=== PATIENT | female | born 1950 | race Caucasian/White ===

== ENCOUNTER → 2016-03-29 | Day surgery (SDC) | payer OTHER ==
[~2016-03-29] MED LIST: ACETAMINOPHEN 1000 MG/100 ML VIAL IV ONE; ACETAMINOPHEN/HYDROcodone 325 MG/5 MG TAB ONE; ALPR-138; AMBI12.5; BALANCED SALT SOLN OPHT IRRIG 15 ML BTL ONE; DARV; LACTATED RINGER'S 1000 ML INJ 1,000 ML ONE; LIDOCAINE 1%/EPINEPHrine 1:100,000 SOLN 20 ML VIAL ONE; LIDOCAINE 2%/EPINEPHrine PF 1:200,000 20ML SDV ONE; METHTAB; MIDAZOLAM HCL 2 MG/2 ML VIAL ONE; NEOMYCIN/POLYMYXIN/BACITRACIN OINT 15 GM TUBE ONE; NEOMYCIN/POLYMYXIN/HYDROCORT OTIC SUSP 10 ML BTL ONE; ONDANSETRON HCL 4 MG/2 ML VIAL IV PUSH ONE; PREM0.622; PREV30CA36; PROG1CAP20; PROPOFOL 200 MG/20 ML AMP IV ONE; RESTASIS; SALAGEN; TRIA3AER; ZOVI400T15; [UNRECOGNIZED DRUG - CODE]; ceFAZolin INJ 1,000 MG VIAL ONE
--- NOTE | 2016-03-29 12:37 | TN ---
cc: HAROON CLEANING M.D. DATE OF SURGERY: 03/29/2016 PREOPERATIVE DIAGNOSIS Facial aging with lower bulging of the lower eyelid fat bags. PROCEDURE Cervicofacial rhytidectomy, facial fat injections, lower blepharoplasty. SURGEON Haroon Cleaning. DYE COLORIST DYER Nnamdi Han, MS-3 DRAINS Two 10 mm Reliavac. COMPLICATIONS None. PROCEDURE The patient was properly consented, marked, properly anesthetized. The skin was sterilized with Betadine solution and sterile draping was applied. I utilized approximately 150 ccs of diluted substance in which mixed lidocaine with epinephrine into 150 ccs of saline, 20 ccs of lidocaine. She was properly consented, marked in the upright position, taken to the operating room where after achieving a level of anesthesia, the area was properly prepped and draped utilizing Microcyn and sterile draping applied. Tumescent fluid was infiltrated including 2 ccs 2% lidocaine with epinephrine throughout the incisions. Approached the area with the lower eyelids through a transconjunctival incision, through which cornea protectors was utilized right at the first arcade of vessels in the conjunctival level. A 6-0 Prolene suture was utilized as the anchor point. Through this ___ electrocautery and opened the transconjunctival incision. Exploration of the three fat bags were properly done on each lower eyelid, finding and removed as needed. This was properly trimmed judiciously and removed very carefully. With this a lateral canthopexy was done utilizing 5-0 Mersilene suture and a double arm suture into the inner aspect of the superolateral aspect of the periosteum of the orbit. The excessive skin was removed by utilizing a pinch technique which is very minimal and this was closed utilizing 5-0 fast-absorbing gut. The contralateral side was approached exactly in the same manner as previously described. At this point utilizing the fat harvested from the lower abdomen and upper abdomen which was a total of 120, suitable for injection were 40, of those I inject utilizing fine cannulas into the marionette line chin area, nasolabial fold, cheek area. Approximately 35 ccs was utilized throughout divided of the face. The cervicofacial flaps were elevated, the plication of the SMAS was done, anchoring utilizing 3-0 Mersilene suture. Touch of fat were done where needed and closed the wounds after bringing through a separate stab wound a 10 mm Reliavac drain which was thereafter secured utilizing 2-0 Monocryl suture. The excessive skin was removed very judiciously and the wounds were closed in the preauricular utilizing 5-0 Monocryl suture and 5-0 fast-absorbing gut, retroauricular I utilized 3-0 Monocryl suture and surgical mike on the hair bearing scalp. Good viability of tissue was noted at the end of the case. The patient was awakened, extubated in the operating room and transferred back to postanesthesia care unit in stable condition. No complications were appreciated. The patient tolerated the procedure fairly well. MD IRINEO Goins/JAYLEN /12:00 PM /12:15 PM
== END | disposition home or self-care (01) ==
LOC: ESDC 06:16
PROVIDERS: ATTEND Plastic Surgery
DX: Z41.1 Encounter for cosmetic surgery (principal)
CPT/HCPCS: 00103; 00300; 11954; 15820; 15828; 21282; J0131; J0690; J2250; J2405; J3010; J7120